=== PATIENT | female | born 2000 | race African-American/Black ===

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

== ENCOUNTER 2020-05-10 08:27 | Emergency (ER) | payer OTHER ==
[~2020-05-10] VITALS: Ht 162.6 cm; Wt 86.0 kg
[~2020-05-10 08:27] MED LIST changes: -CETI10TA22 PO; +CETI10TA74 PO
[2020-05-10 08:45] VITALS: BP 126/74
[2020-05-10 08:55] LABS: BILIRUBIN,URINE NEGATIVE (NEG); CLARITY,URINE CLEAR; COLOR,URINE YELLOW; NITRITE,URINE NEGATIVE (NEG); PROTEIN,URINE NEGATIVE (NEG-TRACE); UROBILINOGEN,URINE 0.2 mg/dL (0.2 mg/dL)
[2020-05-10 09:05] LABS: BACTERIA,URINE FEW /HPF (0-FEW); RBC,URINE 0 /HPF (0-2)
--- NOTE | 2020-05-10 09:26 | ED.ADGEN ---
Past Medical History Past Medical History: No Pertinent History, Asthma, Other Additional Past Medical Histor: seasonal allergies Past Surgical History: No Surgical History Smoking Status: Never Smoker Alcohol Use: Occasionally Drug Use: Marijuana General Adult EDM: Chief Complaint: VAGINAL PROBLEM HPI: HPI: Patient is a 19-year-old female who presents to the emergency room requesting STD testing. 1 month ago she went to [facility] and was diagnosed at that time with syphilis, UTI, and possible cervicitis. Patient is unsure what med ication she got. She states that she received 2 calls from [facility] 1 stating that she got up the treatment she needed and the other stating they were not sure if she got all the treatment she needed. Patient states that the rash she had on her hands and feet initially has resolved. She denies any kind of vaginal discharge, vaginal bleeding, abdominal pain, pelvic pain, dysuria, pain with intercourse. She has not had any nausea or vomiting. She has not had any further skin lesions. Review of Systems: Review of Systems: Complete ROS is negative unless otherwise documented in HPI Allergies: Allergies: Allergies Coded Allergies Type Severity Reaction Last Updated Verified polymyxin B Allergy Intermediate Swelling 08/11/16 Yes Physical Exam: PE: General: Awake, alert, NAD. Well Nourished, well hydrated. Cooperative HEENT: Atraumatic, EOMI, PERRL, airway patent, moist oral mucosa Neck: Supple, trachea midline Respiratory: CTA bilaterally, normal effort, no wheezing/crackles CV: RRR, no murmur, cap refill <2 GI: Soft, nondistended, nontender, no masses MSK: No obvious deformities Skin: Warm, dry, intact Neuro: A&O x3, speech NL, sensory and motor grossly intact, no focal deficits Psych: Normal affect, normal mood, not suicidal or homicidal Current Patient Data: Labs: Laboratory Tests Test 05/10/20 08:47 05/10/20 08:48 POC Urine HCG, Qualitative Hcg negative (Negative) Urine Collection Type Void Urine Color Yellow Urine Clarity Clear Urine pH 6.0 (<5.0-8.0) Urine Specific [place] >=1.030 (1.000-1.030) Urine Protein Negative mg/dL (NEG-TRACE) Urine Glucose (UA) Negative mg/dL (NEG) Urine Ketones (Stick) Negative mg/dL (NEG) Urine Blood Negative (NEG) Urine Nitrite Negative (NEG) Urine Bilirubin Negative (NEG) Urine Urobilinogen Dipstick 0.2 mg/dL (0.2 mg/dL) Urine Leukocyte Esterase Negative (NEG) Urine RBC 0 /HPF (0-2) Urine WBC 1-4 /HPF (0-4) Urine Squamous Epithelial Cells Mod /LPF Urine Bacteria Few /HPF (0-FEW) Urine Mucus Mod /LPF Microbiology 05/10/20 Wet Prep - Final, Complete Vital Signs: Vital Signs Date Time Temp Pulse Resp B/P (MAP) Pulse Ox O2 Delivery O2 Flow Rate FiO2 05/10/20 08:45 98.2 85 16 126/74 (91) 100 Room Air 98.2 EKG: EKG: [] Heart Score: C/O Chest Pain: N/A Risk Factors: Risk Factors: DM, Current or recent (<one month) smoker, HTN, HLP, family history of CAD, obesity. Risk Scores: Score 0 - 3: 2.5% MACE over next 6 weeks - Discharge Home Score 4 - 6: 20.3% MACE over next 6 weeks - Admit for Clinical Observation Score 7 - 10: 72.7% MACE over next 6 weeks - Early Invasive Strategies Radiology/Procedures: Radiology/Procedures: [] Course & Med Decision Making: Course & Med Decision Making Pertinent Labs and Imaging studies reviewed. (See chart for details) Patient is a 19-year-old female who presents to the emergency room requesting testing as she was recently treated for STDs. Will repeat her syphilis and hepatitis panel today. We will also repeat her gonorrhea chlamydia and wet prep. UA does show significant signs of UTI. Patient is asymptomatic. Will defer treatment until testing comes back. Patient's test results and vitals while in the ED were fully reviewed and discussed with the patient. Patient is stable and at this time does not need admission to the hospital. We have discussed strict return precautions and the importance of following up with their Primary Care Physician. Patient stated understanding and was given an opportunity to ask any questions. Patient is in agreement with plan. Jadeon Disclaimer: Marline Disclaimer: This electronic medical record was generated, in whole or in part, using a voice recognition dictation system. Departure Departure Impression: Primary Impression: Screening for STD (sexually transmitted disease) Disposition: 01 DC HOME SELF CARE/HOMELESS Condition: STABLE Referrals: IRINA MARTI COOKER HELPER (PCP) Patient Instructions: Sexuality and Disability JAZMYN ROE MD May 10, 2020 09:26
[2020-05-10 10:27] LABS: ALBUMIN 3.7 g/dL (3.4-5.0); DIRECT BILIRUBIN 0.1 mg/dL (0.0-0.2); TOTAL BILIRUBIN 0.4 mg/dL (0.2-1.0); TOTAL PROTEIN 7.5 g/dL (6.4-8.2)
== END 2020-05-10 10:30 | disposition home or self-care (01) ==
LOC: ER 08:27
DX: R21 Rash and other nonspecific skin eruption (principal); J45.909 Unspecified asthma, uncomplicated; F12.90 Cannabis use, unspecified, uncomplicated; Z88.8 Allergy status to other drugs, medicaments and biological substances
CPT/HCPCS: 80076; 81001; 81025; 86592; 87491; 87591; 99283; Q0111

== ENCOUNTER 2020-09-05 12:24 | Emergency (ER) | payer OTHER ==
[~2020-09-05] VITALS: Ht 162.6 cm; Wt 75.0 kg
[2020-09-05 12:51] VITALS: BP 138/73
[2020-09-05 13:26] LABS: CLARITY,URINE CLEAR
[2020-09-05 13:27] LABS: BACTERIA,URINE 0 /HPF (0-FEW); BILIRUBIN,URINE NEGATIVE (NEG); COLOR,URINE STRAW; NITRITE,URINE NEGATIVE (NEG); PH,URINE 7.5 (<5.0-8.0); PROTEIN,URINE NEGATIVE (NEG-TRACE); RBC,URINE 0 /HPF (0-2)
--- NOTE | 2020-09-05 13:58 | PHYS DOC ---
Past Medical History Past Medical History: No Pertinent History, Asthma, Other Additional Past Medical Histor: seasonal allergies Past Surgical History: No Surgical History Smoking Status: Never Smoker Alcohol Use: Occasionally Drug Use: Marijuana General Adult EDM: Chief Complaint: SEXUALLY TRANSMITTED DISEASE HPI: HPI: Patient is a 20 year old female who presents with states she was called yesterday and told that she need to be checked for herpes because her sexual partner a year ago came down with herpes. Patient denies any kind of breakout or vaginal sores. She denies any abnormal vaginal discharge or smell. She denies abdominal pain, rashes, fever, urinary symptoms, back pain, nausea or vomiting. She is a history of syphilis and asthma. Denies any pain. Review of Systems: Review of Systems: Constitutional: Denies fever or chills. [] Eyes: Denies change in visual acuity. [] HENT: Denies nasal congestion or sore throat. [] Respiratory: Denies cough or shortness of breath. [] Cardiovascular: Denies chest pain or edema. [] GI: Denies abdominal pain, nausea, vomiting, bloody stools or diarrhea. [] : Denies dysuria. + Concern for STD. [] Musculoskeletal: Denies back pain or joint pain. [] Integument: Denies rash. [] Neurologic: Denies headache, focal weakness or sensory changes. [] Endocrine: Denies polyuria or polydipsia. [] Lymphatic: Denies swollen glands. [] Psychiatric: Denies depression or anxiety. [] Heart Score: C/O Chest Pain: No Risk Factors: Risk Factors: DM, Current or recent (<one month) smoker, HTN, HLP, family history of CAD, obesity. Risk Scores: Score 0 - 3: 2.5% MACE over next 6 weeks - Discharge Home Score 4 - 6: 20.3% MACE over next 6 weeks - Admit for Clinical Observation Score 7 - 10: 72.7% MACE over next 6 weeks - Early Invasive Strategies Allergies: Allergies: Allergies Coded Allergies Type Severity Reaction Last Updated Verified polymyxin B Allergy Intermediate Swelling 08/11/16 Yes Physical Exam: PE: Constitutional: Well developed, well nourished, no acute distress, non-toxic appearance. [] HENT: Normocephalic, atraumatic, bilateral external ears normal, oropharynx moist, no oral exudates, nose normal. [] Eyes: PERRLA, EOMI, conjunctiva normal, no discharge. [] Neck: Normal range of motion, no tenderness, supple, no stridor. [] Cardiovascular:Heart rate regular rhythm, no murmur [] Lungs & Thorax: Bilateral breath sounds clear to auscultation [] Abdomen: Bowel sounds normal, soft, no tenderness, no masses, no pulsatile masses. [] Skin: Warm, dry, no erythema, no rash. [] Back: No tenderness, no CVA tenderness. [] Extremities: No tenderness, no cyanosis, no clubbing, ROM intact, no edema. [] Neurologic: Alert and oriented X 3, normal motor function, normal sensory function, no focal deficits noted. [] Psychologic: Affect normal, judgement normal, mood normal. [] Normal physical exam Current Patient Data: Labs: Laboratory Tests Test 09/05/20 13:05 Urine Collection Type Unknown Urine Color Straw Urine Clarity Clear Urine pH 7.5 (<5.0-8.0) Urine Specific [place] 1.025 (1.000-1.030) Urine Protein Negative mg/dL (NEG-TRACE) Urine Glucose (UA) Negative mg/dL (NEG) Urine Ketones (Stick) Negative mg/dL (NEG) Urine Blood Negative (NEG) Urine Nitrite Negative (NEG) Urine Bilirubin Negative (NEG) Urine Urobilinogen Dipstick 1.0 mg/dL (0.2 mg/dL) Urine Leukocyte Esterase Negative (NEG) Urine RBC 0 /HPF (0-2) Urine WBC 1-4 /HPF (0-4) Urine Squamous Epithelial Cells Mod /LPF Urine Bacteria 0 /HPF (0-FEW) Vital Signs: Vital Signs Date Time Temp Pulse Resp B/P (MAP) Pulse Ox O2 Delivery O2 Flow Rate FiO2 09/05/20 12:51 99.2 63 18 138/73 (91) Room Air 99.2 EKG: EKG: [] Radiology/Procedures: Radiology/Procedures: [] Course & Med Decision Making: Course & Med Decision Making Pertinent Labs and Imaging studies reviewed. (See chart for details) See HPI. Alert and oriented x4. Ambulatory steady gait. Speaks in full clear sentences. Patient states she has no other concerns for sexually transmitted diseases except for this. I called lab and they stated to draw the herpes antibody. It is a send out lab. Patient denies any urinary symptoms. Abdomen is soft and nontender. She is afebrile. Nurse went in to draw the herpes antibody testing patient states that she is ju st can await and go to the health department tomorrow because of fever. [] Marline Disclaimer: Dragon Disclaimer: This electronic medical record was generated, in whole or in part, using a voice recognition dictation system. Departure Departure Impression: Primary Impression: Concern about sexually transmitted disease in female without diagnosis Disposition: HOME / SELF CARE / HOMELESS Condition: STABLE Referrals: IRINA MARTI NP (PCP) JENNY THOMPSON MD Patient Instructions: Sexually Transmitted Disease Additional Instructions: Follow-up with a orchestra leader of your choice. I have referred you to Dr. Thompson if you so choose to follow-up with him. MISAEL WASHINGTON APRN Sep 05, 2020 13:58
== END 2020-09-05 14:18 | disposition home or self-care (01) ==
LOC: ER 12:24
DX: Z20.2 Contact with and (suspected) exposure to infections with a predominantly sexual mode of transmission (principal); J45.909 Unspecified asthma, uncomplicated; Z88.1 Allergy status to other antibiotic agents
CPT/HCPCS: 81001; 99283